=== PATIENT | male | born 1935 | race Caucasian/White ===

== ENCOUNTER 2022-05-02 20:07 | Emergency (ER) | payer OTHER, SELFPAY ==
[2022-05-02] VITALS (33 sets, daily range): BP systolic 103–153; BP diastolic 41–99; PULSE 58–73; RESP 13–29; TEMP 36.2; O2SAT 95–99
--- NOTE | 2022-05-02 20:00 | RT.EKG_ITS ---
APPROVED REPORT Exam: Resting ECG Reason for Exam: chest pain Patient Location: E HR:65 bpm ECG Measurements Heart Rate 65 AXIS IA 206 P [id number] QRSd 98 QRS 27 QT 411 T -14 QTc 426 Conclusion Atrial-paced complexes...other complexes also detected Ventricular premature complex...V complex w/ short R-R interval Physician: Rate 65, pacemaker with atrial pacing. No STEMI, no significant ST elevations or depressi ons. Q waves noted in lead III, inverted T waves noted in lead III
--- NOTE | 2022-05-02 20:15 | DI.RAD_ITS ---
Exam(s) XR PORTABLE CHEST AP EXAM: XR PORTABLE CHEST AP CLINICAL HISTORY: syncope, chest tightness. TECHNIQUE: 2D digital imaging was performed. COMPARISON: No exams were available for comparison FINDINGS: Single AP portable view. There is a bipolar left subclavian pacemaker lead tips in right atrium and right ventricle. Sternoto my wires and evidence of previous CABG. Mild cardiomegaly. The mediastinum is not widened. Lungs are clear. No infiltrates nor obvious pleural effusions. No pulmonary edema. No pneumothorax. IMPRESSION: No acute pulmonary findings on this single AP portable view of the chest. Sternotomy. CABG. Bipolar pacemaker. DATA REPOSITORY: RADIATION DOSE DELIVERED: All CT scans at this facility use at least one of these dose optimization techniques: automated exposure control; mA and/or kV adjustment per patient size (includes targeted e xams where dose is matched to clinical indication); or iterative reconstruction.
--- NOTE | 2022-05-02 20:15 | DI.CT_ITS ---
Exam(s) CT HEAD WO EXAM: CT HEAD WO CLINICAL HISTORY: syncope, on thinners, r/o stroke. TECHNIQUE: Imaging Protocol: Axial computed tomography images with coronal and sagittal reformatted images were created and reviewed COMPARISON: No exams were available for comparison FINDINGS: There are no skull fractures nor fluid in the visualized paranasal sinuses. There is no evidence of intracranial hemorrhage, mass effect, or shift of midline structures. There are no extra-axial fluid collections. The ventricles are not enlarged or shifted and there is no blo od within the ventricular system nor within the basal cisterns. There is some mild bilateral periventricular hypodensity consistent with chronic small vessel disease . No obvious acute infarct. The amount of involutional changes consistent with this patient's age. IMPRESSION: No acute intracranial findings on this noninfused CT scan of the brain. Chronic small-vessel white matter ischemic changes. The If clinically indicated follow-up MRI can be performed for added sensitivity and specificity. RADIATION DOSE DELIVERED: 795.58mGy.cm Total DLP DATA REPOSITORY: All CT scans at this facility are submitted to the National Radiology Data Registry (NRDR) Dose Index Registry (DIR) with the [employer] (A[employer]). RADIATION OPTIMIZATION: All CT scans at this facility use at least one of these dose optimization te chniques: automated exposure control; mA and/or kV adjustment per patient size (includes targeted exa ms where dose is matched to clinical indication); or iterative reconstruction.
--- NOTE | 2022-05-02 20:26 | ED.GENADUL_ITS ---
Discharge Plan Disposition Patient Disposition: STILL A PATIENT Condition: Stable Discharge Details Chief Complaint: Chest Pain Clinical Impression: Weakness Primary Care Provider: Unknown,Unknown ED Provider: Stef Teresa Home Meds and New Rx's Prescriptions: No Action ezetimibe [Zetia] 10 mg Tablet 10 mg 1XD metoprolol tartrate 25 mg Tablet 12.5 mg 2XD acetaminophen 325 mg Tablet 975 mg 2XD lisinopril-hydrochlorothiazide 10-12.5 mg Tablet 1 tab PO DAILY rosuvastatin 10 mg Tablet 10 mg 1XD vitamin [id number] acid 0.5-1 mg Tablet 1 tab PO DAILY Eliquis 2.5 mg Tablet 2.5 mg 1XD aspirin 81 mg Capsule 81 mg 1XD Medical Decision Making 86-year-old male with a past medical history of hypertension, high cholesterol, CABG in 2005, pacemaker, previous atrial fibrillation which has subsequently resolved, currently on Eliquis for previous DVT 2 years ago, presents today with his son while traveling. Son states that after a long trip today the patient began feeling lightheaded at about 1 PM and felt very weak. He did not syncopized but lost strength in his lower extremities. He did not fall or hit his head. After that he developed some chest tightness and chest heaviness. He denies any significant chest pain currently and states that it ornelas s resolved. He is taking all of his medications normally as directed. He denies any arm neck or shoulder pain. He denies any headache. He denies any nausea or vomiting. No other complaints at this time. No other modifying factors. Exam demonstrates well-appearing male, somewhat tired but otherwise showing no focal neurologic deficits. Vital signs stable. Differential includes cardiac etiology, dehydration, less likely PE at this time trip since he is taking his blood thinner. We will get a D-dimer, evaluate for concerning cardiac components, monitor closely and reassess. We will gently rehydrate. 11:28 PM Laboratory work-up has returned, D-dimer is age-adjusted negative. No white count, electrolytes stable. BUN slightly high at 53, creatinine 1.8. Initial troponin and EKG benign. Thyroid function normal. proBNP slightly elevated at 2400, no prior for comparison. COVID test negative. Patient continues to feel well. He states that he would like to go home, and does not want to stay overnight. We are still pending repeat troponin. Repeat EKG unchanged. We are pending interrogation of his pacemaker. Case will be signed out to my colleague Dr. Moctezuma for follow-up on troponin and expectant discharge. EKG 20: 19 Rate 65, pacemaker with atrial pacing. No STEMI, no significant ST elevations or depressions. Q waves noted in lead III, inverted T waves noted in lead III EKG 23: 27 Rate 64, atrial paced complexes, no STEMI. No significant ST elevation or depression. Unchanged from prior EKG FINDINGS: Brain: There is no acute intracranial hemorrhage, mass effect or midline shift. No large acute territorial infarct identified. There are patchy regions of hypodensity in the periventricular and subcortical white matter, likely on the basis of chronic microvascular ischemic disease. There are small hypodensities in the right basal ganglia, suggestive of remote lacunar infarcts. Cerebral ventricles: The ventricles and sulci are prominent in size, which is at least in part due to global cerebral volume loss. Paranasal sinuses: The paranasal sinuses are clear. No air-fluid levels. Mastoid air cells: The mastoid air cells are unremarkable. Bones/joints: No acute fracture. Soft tissues: No significant subcutaneous soft tissue abnormality. IMPRESSION: No acute intracranial hemorrhage, mass effect or midline shift. Thank you for allowing us to participate in the care of your patient. Dictated and Authenticated by: Ashlee Whitaker MD 05/02/2022 10:14 PM Eastern Time ([place]) PROCEDURE INFORMATION: Exam: XR Chest Exam date and time: 05/02/2022 9:44 PM Age: 86 years old Clinical indication: Syncope, chest tightness TECHNIQUE: Imaging protocol: Radiologic exam of the chest. Views: 1 view. COMPARISON: No relevant prior studies available. FINDINGS: Tubes, catheters and devices: A left defibrillator device is present, with leads in place. Lungs: No significant consolidation Pleural spaces: No large pleural effusion. No pneumothorax. Heart/Mediastinum: The right heart appears slightly prominent, which could be secondary to right heart enlargement versus patient positioning. Bones/joints: Degenerative changes noted at the acromioclavicular joints. IMPRESSION: No significant consolidation. Thank you for allowing us to participate in the care of your patient. Dictated and Authenticated by: Ashlee Whitaker MD 05/02/2022 10:17 PM Eastern Time ([place]) HPI General Date/Time Provider Initiated Documentation: 05/02/22 20:11 . HPI Narrative: 86-year-old male with a past medical history of hypertension, high cholesterol, CABG in 2006, pacemaker, early Alzheimer's disease, previous atrial fibrillation which has subsequently resolved, currently on Eliquis for previous DVT 2 years ago, presents today with his son while traveling. Son states that after a long trip today the patient began feeling lightheaded at about 1 PM and felt very weak. He did not syncopized but lost strength in his lower extremities. He did not fall or hit his head. After that he developed some chest tightness and chest heaviness. He denies any significant chest pain currently and states that it has resolved. He is taking all of his medications normally as directed. He denies any arm neck or shoulder pain. He denies any headache. He denies any nausea or vomiting. No other complaints at this time. No other modifying factors. Related Data Home Medications Medication Instructions Recorded Confirmed acetaminophen 325 mg tablet 975 mg 2XD 05/02/22 05/02/22 apixaban 2.5 mg tablet (Eliquis) 2.5 mg 1XD 05/02/22 05/02/22 aspirin 81 mg capsule 81 mg 1XD 05/02/22 05/02/22 ezetimibe 10 mg tablet (Zetia) 10 mg 1XD 05/02/22 05/02/22 lisinopril 10 1 tab PO DAILY 05/02/22 05/02/22 mg-hydrochlorothiazide 12.5 mg tablet metoprolol tartrate 25 mg tablet 12.5 mg 2XD 05/02/22 05/02/22 rosuvastatin 10 mg tablet 10 mg 1XD 05/02/22 05/02/22 vitamin B12 0.5 mg-folic acid 1 mg 1 tab PO DAILY 05/02/22 05/02/22 tablet Allergies Allergy/AdvReac Type Severity Reaction Status Date / Time atorvastatin [From Lipitor] AdvReac Intermediate Other (See Unverified 05/02/22 20:24 Comment) General Stated Complaint: Chest Pain MELVINA: 2 Review of Systems All systems reviewed & are unremarkable except as noted in HPI and below PFSH All Active Problems (Updated 05/02/22 @ 23:30 by Stef Teresa DO) Weakness (Acute) Medical History (Updated 05/02/22 @ 23:30 by Stef Teresa DO) Atrial fibrillation Heart disease High cholesterol Hypertension Surgical History (Updated 05/02/22 @ 22:47 by Emily Crawford RN) History of permanent cardiac pacemaker placement Hx of CABG (2005) Social History Smoking/Tobacco Use Status: Never Smoking risk assessment performed?: Yes Alcohol Intake: never Substance use type: does not use Do you feel safe at home: Yes Do you feel safe in your relationship?: Yes Exam Narrative Exam Narrative: 1.Const: Well-nourished, Well-developed, appearing stated age 2.Eyes: PERRL, no conjunctival injection, and symmetrical lids. 3.ENT: Atraumatic external nose and ears. Moist MM. Neck: Symmetric, trachea midline, No thyromegaly. 4.CVS: +S1/S2, No murmurs or gallops. Peripheral pulses 2+ and equal in all extremities. Brisk capillary refill in all extremities. 5.RESP: Unlabored respiratory effort. Clear to auscultation bilaterally. No wheezes rales or rhonchi 6.GI: Soft, Nontender/Nondistended, No hepatosplenomegaly. No guarding or rebound. 7.MSK: Normocephalic/Atraumatic, Extremities w/o deformity or ttp No cyanosis or clubbing, Normal movement of all extremities 8.Skin: Warm, Dry. No rashes or lesions. 9.Neuro: volunteer patient representative II-XII grossly intact. Sensation grossly intact, no focal neurologic deficits. 10.Psych: (AAO) x3. Appropriate mood and affect Course Vital Signs Vital signs: Vital Signs Temperature 36.2 C L 05/02/22 20:12 Pulse 58 L 05/02/22 20:12 Respiratory Rate 18 05/02/22 20:12 Blood Pressure 153/59 H 05/02/22 20:12 Pulse Oximetry 97 05/02/22 20:12 Temperature 36.2 C L 05/02/22 20:12 Pulse 58 L 05/02/22 20:12 Respiratory Rate 18 05/02/22 20:12 Respiratory Effort Non-Labored 05/02/22 20:18 Blood Pressure 153/59 H 05/02/22 20:12 Blood Pressure Position Supine 05/02/22 20:12 Pulse Oximetry 97 05/02/22 20:12 Oxygen Delivery Method Room Air 05/02/22 20:12 Oxygen Flow Rate 0 05/02/22 20:12
[2022-05-02 20:33] LABS: BE (Venous) -3 mmol/L (-2-3); HCO3 (Venous) 24 mmol/L (23-28); O2 Sat (Venous) 57 %; TCO2 (Venous) 22 mmol/L (24-29); pCO2 (Venous) 47 mmHg (41-51); pH (Venous) 7.31 (7.31-7.41); pO2 (Venous) 32 mmHg
[2022-05-02 20:36] LABS: Abs Immature Grans 0.02 10^3/uL (0.0-0.06); Absolute Basophil Count 0.05 10^3/uL (0.0-0.2); Absolute Monocyte Count 0.58 10^3/uL (0.1-0.8); Absolute Neutrophil Count 3.45 10^3/uL (1.2-6.7); Basophils % 0.8; Eosinophils % 3.4; HCT 35.1 % (40.0-50.0); HGB 11.5 g/dL (13.5-17.5); Immature Grans % 0.3; Lymphocytes % 27.1; MCH 30.3 pg (27.0-33.0); MCHC 32.8 % (32.0-36.0); MCV 92 fL (80-95); MPV 11.3 fL (8.0-11.0); Monocytes % 9.8; Neutrophils % 58.6; Platelet Count 111 10^3/uL (130-400); RDW 13.4 % (11.8-14.1); RDW-SD 45.5 fL
[2022-05-02 20:45] LABS: Source Nasal/Nares
[2022-05-02] MEDS: Normal Saline 500 ML IV (20:47)
[2022-05-02 20:56] LABS: INR 1.1 (0.9-1.1); Prothrombin Time 10.9 sec (9.3-11.0)
[2022-05-02 20:59] LABS: Ammonia < 10 umol/L (11-32); PTT Activated 24.5 sec (21.0-27.5)
[2022-05-02 21:00] LABS: ALT 23 U/L (16-63); AST 22 U/L (15-37); Albumin 3.6 g/dL (3.4-5.0); Alkaline Phosphatase 43 U/L (46-116); Anion Gap 7.9 mmol/L (3-11); BUN 53 mg/dL (7-18); Bilirubin, Total 0.7 mg/dL (0.2-1.0); CO2 24.1 mmol/L (21.0-32.0); CREATININE 1.8 mg/dL (0.70-1.30); Calcium 9.4 mg/dL (8.5-10.1); Chloride 104 mmol/L (98-107); Estimated GFR 36.13 (mL/min/1.73m2); Glucose 129 mg/dL (74-106); NT-proBNP 2436 pg/mL (<300); Potassium 4.6 mmol/L (3.5-5.1); Sodium 136 mmol/L (136-145); TSH (W/Ref FT4) 1.26 uIU/mL (0.36-3.74); Total Protein 6.9 g/dL (6.4-8.2); Troponin I < 50 ng/L (<or=60)
[2022-05-02 21:23] LABS: D-Dimer 678 ng/mlFEU (<500)
[2022-05-02 21:39] LABS: COVID-19 PCR Negative (Negative)
--- NOTE | 2022-05-02 22:15 | DI.VRAD_ITS ---
PROCEDURE INFORMATION: Exam: CT Head Without Contrast Exam date and time: 05/02/2022 9:44 PM Age: 86 years old Clinical indication: Syncope and collapse; Additional info: Syncope, on blood thinners TECHNIQUE: Imaging protocol: Computed tomography of the head without contrast. Radiation optimization: All CT scans at this facility use at least one of these dose optimization techniques: automated exposure control; mA and/or kV adjustment per patient size (includes targeted exams where dose is matched to clinical indication); or iterative reconstruction. COMPARISON: No relevant prior studies available. FINDINGS: Brain: There is no acute intracranial hemorrhage, mass effect or midline shift. No large acute territorial infarct identified. There are patchy regions of hypodensity in the periventricular and subcortical white matter, likely on the basis of chronic microvascular ischemic disease. There are small hypodensities in the right basal ganglia, suggestive of remote lacunar infarcts. Cerebral ventricles: The ventricles and sulci are prominent in size, which is at least in part due to global cerebral volume loss. Paranasal sinuses: The paranasal sinuses are clear. No air-fluid levels. Mastoid air cells: The mastoid air cells are unremarkable. Bones/joints: No acute fracture. Soft tissues: No significant subcutaneous soft tissue abnormality. IMPRESSION: No acute intracranial hemorrhage, mass effect or midline shift. Dictated and Authenticated by: Ashlee Dubois MD. Ordering:LEA Finch MD
--- NOTE | 2022-05-02 22:15 | RT.EKG_ITS ---
APPROVED REPORT Exam: Resting ECG Reason for Exam: sob Patient Location: E HR:64 bpm ECG Measurements Heart Rate 64 AXIS MN 225 P [id number] QRSd 102 QRS 13 QT 409 T -72 QTc 422 Conclusion Atrial-paced complexes...other complexes also detected Ventricular premature complex...V complex w/ short R-R interval Prolonged MN interval...MN >220, V-rate 50- 90 Physician: Rate 64, atrial paced complexes, no STEMI. No significant ST elevation or depression. Un changed from prior EKG
--- NOTE | 2022-05-02 22:18 | DI.VRAD_ITS ---
PROCEDURE INFORMATION: Exam: XR Chest Exam date and time: 05/02/2022 9:44 PM Age: 86 years old Clinical indication: Syncope, chest tightness TECHNIQUE: Imaging protocol: Radiologic exam of the chest. Views: 1 view. COMPARISON: No relevant prior studies available. FINDINGS: Tubes, catheters and devices: A left defibrillator device is present, with leads in place. Lungs: No significant consolidation Pleural spaces: No large pleural effusion. No pneumothorax. Heart/Mediastinum: The right heart appears slightly prominent, which could be secondary to right heart enlargement versus patient positioning. Bones/joints: Degenerative changes noted at the acromioclavicular joints. IMPRESSION: No significant consolidation. Dictated and Authenticated by: Ashlee Dubois MD. Ordering:LEA Finch MD
[2022-05-02 23:57] LABS: Troponin I < 50 ng/L (<or=60)
[2022-05-03] VITALS: BP 157/70; PULSE 59; PULSE 63; RESP 12; O2SAT 97
[2022-05-03 00:01] VITALS: PULSE 60; RESP 12; O2SAT 97
[2022-05-03 00:10] VITALS: PULSE 64; RESP 17
[2022-05-03 00:16] VITALS: BP 154/77; PULSE 60; PULSE 63; RESP 13
[2022-05-03 00:20] VITALS: PULSE 60; RESP 16
--- NOTE | 2022-05-03 00:28 | W.EDPROG ---
Date of service: 05/02/22 Time of Service: 23:00 Medical Decision Making 230 --please see Dr. Teresa's note for initial presentation, exam and plan. Case endorsed to follow-up on repeat troponin and EKG. Patient and daughter feel comfortable taking patient home 0040 --repeat troponin negative. Repeat EKG unchanged. Patient remains asymptomatic and would like to go home. Patient is hemodynamically stable. Patient was able to ambulate. Advised to follow up with the primary care doctor for re-evaluation. Usual and customary return precautions given prior to discharge. Medical Records Medical records reviewed: Yes I reviewed the patient's medical records. Imaging Data Radiologic Study: Radiologist's impression: XR Chest Exam date and time: 05/02/2022 9:44 PM Age: 86 years old Clinical indication: Syncope, chest tightness TECHNIQUE: Imaging protocol: Radiologic exam of the chest. Views: 1 view. COMPARISON: No relevant prior studies available. FINDINGS: Tubes, catheters and devices: A left defibrillator device is present, with leads in place. Lungs: No significant consolidation Pleural spaces: No large pleural effusion. No pneumothorax. Heart/Mediastinum: The right heart appears slightly prominent, which could be secondary to right heart enlargement versus patient positioning. Bones/joints: Degenerative changes noted at the acromioclavicular joints. IMPRESSION: No significant consolidation. CT Head Without Contrast Exam date and time: 05/02/2022 9:44 PM Age: 86 years old Clinical indication: Syncope and collapse; Additional info: Syncope, on blood thinners TECHNIQUE: Imaging protocol: Computed tomography of the head without contrast. Radiation optimization: All CT scans at this facility use at least one of these dose optimization techniques: automated exposure control; mA and/or kV adjustment per patient size (includes targeted exams where dose is matched to clinical indication); or iterative reconstruction. COMPARISON: No relevant prior studies available. FINDINGS: Brain: There is no acute intracranial hemorrhage, mass effect or midline shift. No large acute territorial infarct identified. There are patchy regions of hypodensity in the periventricular and subcortical white matter, likely on the basis of chronic microvascular ischemic disease. There are small hypodensities in the right basal ganglia, suggestive of remote lacunar infarcts. Cerebral ventricles: The ventricles and sulci are prominent in size, which is at least in part due to global cerebral volume loss. Paranasal sinuses: The paranasal sinuses are clear. No air-fluid levels. Mastoid air cells: The mastoid air cells are unremarkable. Bones/joints: No acute fracture. Soft tissues: No significant subcutaneous soft tissue abnormality. IMPRESSION: No acute intracranial hemorrhage, mass effect or midline shift. Lab Data Lab results reviewed: Yes I reviewed the patient's lab results. Labs: Laboratory Tests Range/Units 05/02/22 05/02/22 05/02/22 20:20 20:20 20:20 WBC (4.4-10.8) 10^3/uL 5.90 RBC (4.36-5.78) 10^6/uL 3.80 L Hgb (13.5-17.5) g/dL 11.5 L Hct (40.0-50.0) % 35.1 L MCV (80-95) fL 92 MCH (27.0-33.0) pg 30.3 MCHC (32.0-36.0) % 32.8 RDW (11.8-14.1) % 13.4 Plt Count (130-400) 10^3/uL 111 L MPV (8.0-11.0) fL 11.3 H Immature Gran % 0.3 Neutrophils % 58.6 Lymphocytes % 27.1 Monocytes % 9.8 Eosinophils % 3.4 Basophils % 0.8 Nucleated RBC % (0.0-0.3) % 0.0 Absolute Neutrophils (1.2-6.7) 10^3/uL 3.45 Absolute Lymphocytes (1.2-3.4) 10^3/uL 1.60 Absolute Monocytes (0.1-0.8) 10^3/uL 0.58 Absolute Eosinophils (0.0-0.7) 10^3/uL 0.20 Absolute Basophils (0.0-0.2) 10^3/uL 0.05 PT (9.3-11.0) sec INR (0.9-1.1) APTT (21.0-27.5) sec D-Dimer (<500) ng/mlFEU VBG pH (7.31-7.41) 7.31 VBG pCO2 (41-51) mmHg 47 VBG pO2 mmHg 32 VBG HCO3 (23-28) mmol/L 24 VBG Total CO2 (24-29) mmol/L 22 L VBG O2 Saturation % 57 VBG Base Excess (-2-3) mmol/L -3 L Sodium (136-145) mmol/L 136 Potassium (3.5-5.1) mmol/L 4.6 Chloride (98-107) mmol/L 104 Carbon Dioxide (21.0-32.0) mmol/L 24.1 Anion Gap (3-11) mmol/L 7.9 BUN (7-18) mg/dL 53 H Creatinine (0.70-1.30) mg/dL 1.8 H Estimated GFR/1.73 m2 (mL/min/1.73m2) 36.13 Glucose (74-106) mg/dL 129 H Calcium (8.5-10.1) mg/dL 9.4 Total Bilirubin (0.2-1.0) mg/dL 0.7 AST (15-37) U/L 22 ALT (16-63) U/L 23 Alkaline Phosphatase (46-116) U/L 43 L Ammonia (11-32) umol/L Troponin I (<or=60) ng/L < 50 NT-Pro-B Natriuret Pep (<300) pg/mL 2436 H Total Protein (6.4-8.2) g/dL 6.9 Albumin (3.4-5.0) g/dL 3.6 TSH (0.36-3.74) uIU/mL 1.26 COVID-19 Source SARS-CoV-2 (PCR) (Negative) Range/Units 05/02/22 05/02/22 05/02/22 20:36 20:36 20:36 WBC (4.4-10.8) 10^3/uL RBC (4.36-5.78) 10^6/uL Hgb (13.5-17.5) g/dL Hct (40.0-50.0) % MCV (80-95) fL MCH (27.0-33.0) pg MCHC (32.0-36.0) % RDW (11.8-14.1) % Plt Count (130-400) 10^3/uL MPV (8.0-11.0) fL Immature Gran % Neutrophils % Lymphocytes % Monocytes % Eosinophils % Basophils % Nucleated RBC % (0.0-0.3) % Absolute Neutrophils (1.2-6.7) 10^3/uL Absolute Lymphocytes (1.2-3.4) 10^3/uL Absolute Monocytes (0.1-0.8) 10^3/uL Absolute Eosinophils (0.0-0.7) 10^3/uL Absolute Basophils (0.0-0.2) 10^3/uL PT (9.3-11.0) sec 10.9 INR (0.9-1.1) 1.1 APTT (21.0-27.5) sec 24.5 D-Dimer (<500) ng/mlFEU 678 H VBG pH (7.31-7.41) VBG pCO2 (41-51) mmHg VBG pO2 mmHg VBG HCO3 (23-28) mmol/L VBG Total CO2 (24-29) mmol/L VBG O2 Saturation % VBG Base Excess (-2-3) mmol/L Sodium (136-145) mmol/L Potassium (3.5-5.1) mmol/L Chloride (98-107) mmol/L Carbon Dioxide (21.0-32.0) mmol/L Anion Gap (3-11) mmol/L BUN (7-18) mg/dL Creatinine (0.70-1.30) mg/dL Estimated GFR/1.73 m2 (mL/min/1.73m2) Glucose (74-106) mg/dL Calcium (8.5-10.1) mg/dL Total Bilirubin (0.2-1.0) mg/dL AST (15-37) U/L ALT (16-63) U/L Alkaline Phosphatase (46-116) U/L Ammonia (11-32) umol/L < 10 L Troponin I (<or=60) ng/L NT-Pro-B Natriuret Pep (<300) pg/mL Total Protein (6.4-8.2) g/dL Albumin (3.4-5.0) g/dL TSH (0.36-3.74) uIU/mL COVID-19 Source SARS-CoV-2 (PCR) (Negative) Range/Units 05/02/22 05/02/22 20:37 23:35 WBC (4.4-10.8) 10^3/uL RBC (4.36-5.78) 10^6/uL Hgb (13.5-17.5) g/dL Hct (40.0-50.0) % MCV (80-95) fL MCH (27.0-33.0) pg MCHC (32.0-36.0) % RDW (11.8-14.1) % Plt Count (130-400) 10^3/uL MPV (8.0-11.0) fL Immature Gran % Neutrophils % Lymphocytes % Monocytes % Eosinophils % Basophils % Nucleated RBC % (0.0-0.3) % Absolute Neutrophils (1.2-6.7) 10^3/uL Absolute Lymphocytes (1.2-3.4) 10^3/uL Absolute Monocytes (0.1-0.8) 10^3/uL Absolute Eosinophils (0.0-0.7) 10^3/uL Absolute Basophils (0.0-0.2) 10^3/uL PT (9.3-11.0) sec INR (0.9-1.1) APTT (21.0-27.5) sec D-Dimer (<500) ng/mlFEU VBG pH (7.31-7.41) VBG pCO2 (41-51) mmHg VBG pO2 mmHg VBG HCO3 (23-28) mmol/L VBG Total CO2 (24-29) mmol/L VBG O2 Saturation % VBG Base Excess (-2-3) mmol/L Sodium (136-145) mmol/L Potassium (3.5-5.1) mmol/L Chloride (98-107) mmol/L Carbon Dioxide (21.0-32.0) mmol/L Anion Gap (3-11) mmol/L BUN (7-18) mg/dL Creatinine (0.70-1.30) mg/dL Estimated GFR/1.73 m2 (mL/min/1.73m2) Glucose (74-106) mg/dL Calcium (8.5-10.1) mg/dL Total Bilirubin (0.2-1.0) mg/dL AST (15-37) U/L ALT (16-63) U/L Alkaline Phosphatase (46-116) U/L Ammonia (11-32) umol/L Troponin I (<or=60) ng/L < 50 NT-Pro-B Natriuret Pep (<300) pg/mL Total Protein (6.4-8.2) g/dL Albumin (3.4-5.0) g/dL TSH (0.36-3.74) uIU/mL COVID-19 Source Nasal/Nares SARS-CoV-2 (PCR) (Negative) Negative ECG Data Attestation: I personally reviewed and interpreted this ECG (s) as follows: Interpretation: #2 -- rate of 96, sinus, normal axis, no STEMI. Sign Out Sign Out Data: Sign Out Comment: pending repeat trop Last updated by Stef Teresa DO at 05/02/22 23:54 Discharge Plan Disposition Patient Disposition: HOME Condition: Improving Discharge Details Clinical Impression: Episode of generalized weakness, Dizziness Primary Care Provider: Unknown,Unknown ED Provider: Carol Moctezuma Home Meds and New Rx's Prescriptions: Continued ezetimibe [Zetia] 10 mg Tablet 10 mg 1XD metoprolol tartrate 25 mg Tablet 12.5 mg 2XD acetaminophen 325 mg Tablet 975 mg 2XD lisinopril-hydrochlorothiazide 10-12.5 mg Tablet 1 tab PO DAILY rosuvastatin 10 mg Tablet 10 mg 1XD vitamin [id number] acid 0.5-1 mg Tablet 1 tab PO DAILY Eliquis 2.5 mg Tablet 2.5 mg 1XD aspirin 81 mg Capsule 81 mg 1XD Discharge Instructions Additional Instructions: Your lab work, EKG and imaging today is reassuring and shows no evidence of acute concerning or significant findings. Follow-up with your primary care doctor near home within the next 1 to 2 weeks. Return immediately to the emergency department if you develop any worsening or new concerning symptoms. Discharge Data Discharge Date/Time-TO BE ENTERED AT DEPARTURE: 05/03/22 00:49 Discharge Physician: Carol Moctezuma
[2022-05-03 00:30] VITALS: PULSE 60; RESP 15
== END 2022-05-03 00:49 | disposition home or self-care (01) ==
PROVIDERS: Student in an Organized Health Care Education/Training Program; Emergency Provider Physician Assistant
DX: R53.1 Weakness (principal); R07.89 Other chest pain; I10 Essential (primary) hypertension; I48.91 Unspecified atrial fibrillation; G30.9 Alzheimer's disease, unspecified; F02.80 Dementia in other diseases classified elsewhere, unspecified severity, without behavioral disturbance, psychotic disturbance, mood disturbance, and anxiety; Z20.822 Contact with and (suspected) exposure to COVID-19; Z79.01 Long term (current) use of anticoagulants; Z95.0 Presence of cardiac pacemaker; Z95.1 Presence of aortocoronary bypass graft; Z79.82 Long term (current) use of aspirin
CPT/HCPCS: 36415; 80053; 82805; 87635; 93005; 96360; 99284; 99285; 70450; 71045; 82140; 83880; 84443; 84484; 85025; 85379; 85610; 85730; 93010